=== PATIENT | female | born 1995 | race African-American/Black ===

== ENCOUNTER 2018-11-20 07:30 | Inpatient (IN) | payer MEDICAID, OTHER ==
[~2018-11-20] VITALS: Ht 172.7 cm; Wt 72.6 kg
[2018-11-20] VITALS (24 sets, daily range): BP systolic 119–171; BP diastolic 68–100
[2018-11-20 08:13] LABS: CHLORIDE 109 mEq/L (98-107)
[2018-11-20 08:16] LABS: ETHANOL BLOOD < 10 mg/dL
[2018-11-20 08:22] LABS: HCG SCREEN NEGATIVE
[2018-11-20 08:25] LABS: HEMATOCRIT. 44.4 % (36.0-48.0); HEMOGLOBIN. 14.6 g/dL (12.0-16.0); MEAN CORPUSCULAR HEMOGLOBIN 31.3 pg (28.0-32.0); MEAN CORPUSCULAR VOLUME 95.3 fL (81.0-99.0); MEAN PLATELET VOLUME 10.3 fl (7.4-10.4); PLATELET 214 x1000/uL (130-400); RED BLOOD CELL COUNT 4.66 mill/uL (4.2-5.4); RED CELL DISTRIBUTION WIDTH 13.1 % (11.6-14.6)
[2018-11-20 08:35] LABS: CLARITY URINE CLEAR (CLEAR); COLOR URINE YELLOW (YELLOW); KETONES URINE 1+ (NEGATIVE); LEUKOCYTE ESTERASE URINE NEGATIVE (NEGATIVE); NITRITE URINE NEGATIVE (NEGATIVE); OCCULT BLOOD URINE NEGATIVE (NEGATIVE); PH URINE 5.5 (4.5-8.0); PROTEIN URINE NEGATIVE (NEGATIVE); SPECIFIC GRAVITY URINE 1.022 (1.005-1.030)
[2018-11-20 08:50] LABS: *AMPHETAMINES SCREEN URINE NEGATIVE (NEGATIVE)
[2018-11-20 08:51] LABS: *BARBITURATES SCREEN URINE NEGATIVE (NEGATIVE); *BENZODIAZEPINES SCREEN URINE NEGATIVE (NEGATIVE); *COCAINE SCREEN URINE NEGATIVE (NEGATIVE); METHADONE URINE SCREEN NEGATIVE (NEGATIVE); OPIATES URINE SCREEN NEGATIVE (NEGATIVE)
[2018-11-20 08:52] LABS: CANNABINOID URINE SCREEN NEGATIVE (NEGATIVE); PHENCYCLIDINE URINE SCREEN NEGATIVE (NEGATIVE)
[2018-11-20 09:01] LABS: BG BASE EXCESS -7.2 mmol/L (-2.0-2.0); BG DEOXYHEMOGLOBIN 1.7 % (0.0-5.0); BG FRACTION INSPIRED OXYGEN 100; BG HCO3 ACT 18.8 mmol/L (22.0-26.0); BG METHEMOGLOBIN 0.2 % (0.0-1.5); BG OXYGEN SATURATION 98.3 % (92.0-98.5); BG OXYHEMOGLOBIN 98.1 % (94.0-97.0); BG PH 7.291 (7.350-7.450); BG PO2 133.2 mmHg (75.0-100.0); BG SAMPLE SITE LEFT RADIAL; BG VENT MODE MASK - NRB
[2018-11-20] MEDS ORDERED: SODIUM CHLORIDE 0.9% 1,000 ML IV ONE (09:09)
[2018-11-20 09:28] LABS: PLATELET ESTIMATE NORMAL
[2018-11-20] MEDS ORDERED: VANCOMYCIN 1 G PREMIX 200 ML IV ONE (09:45)
[2018-11-20] MEDS ORDERED: PIPERACILLIN/TAZ 3.375G PREMIX 50 ML IV ONE (09:45)
[2018-11-20] MEDS ORDERED: ETOMIDATE 2MG/ML 10ML VIAL IV ONE (10:50)
[2018-11-20] MEDS ORDERED: SUCCINYLCHOLINE CHLORIDE 200MG/10ML IV ONE (10:50)
[2018-11-20] MEDS ORDERED: PIPERACILLIN/TAZ 3.375G PREMIX 50 ML IV SCH (12:00)
[2018-11-20] MEDS ORDERED: IPRATROPIUM/ALBUTEROL 0.5-3(2.5)MG/3ML NEB HHN PRN (12:00)
[2018-11-20] MEDS ORDERED: CLONIDINE 0.1MG TABLET PO PRN (12:00)
[2018-11-20] MEDS ORDERED: VANCOMYCIN 1 G PREMIX 200 ML IV SCH (12:00)
[2018-11-20 13:11] LABS: BG BASE EXCESS -4.6 mmol/L (-2.0-2.0); BG CARBOXYHEMOGLOBIN 0.1 % (0.5-1.5); BG DEOXYHEMOGLOBIN 0.8 % (0.0-5.0); BG FRACTION INSPIRED OXYGEN 100; BG HCO3 ACT 21.9 mmol/L (22.0-26.0); BG METHEMOGLOBIN 0.4 % (0.0-1.5); BG OXYGEN SATURATION 99.2 % (92.0-98.5); BG OXYHEMOGLOBIN 98.7 % (94.0-97.0); BG PH 7.296 (7.350-7.450); BG SAMPLE SITE RIGHT RADIAL; BG TIDAL VOLUME(mL) 500 mL; BG TOTAL HEMOGLOBIN 13.8 g/dL (12.0-18.0); BG VENT MODE VENT - A/C; BG VENT RATE 18 set
[2018-11-20] MEDS ORDERED: HYDRALAZINE 20MG/ML VIAL IV PRN (13:45)
[2018-11-20] MEDS: PANTOPRAZOLE SODIUM 40 MG/VIAL IV SCH (13:59)
[2018-11-20] MEDS ORDERED: VANCOMYCIN 500 MG PREMIX 100 ML IV SCH (14:00)
[2018-11-20] MEDS: ENOXAPARIN 40MG/0.4ML SYR SUBCUT SCH (14:04)
[2018-11-20] MEDS: DEXT 5%/0.45% NACL 1000ML 1,000 ML IV SCH (15:20)
[2018-11-20 16:14] LABS: BG CARBOXYHEMOGLOBIN 0.4 % (0.5-1.5); BG DEOXYHEMOGLOBIN 1.1 % (0.0-5.0); BG FRACTION INSPIRED OXYGEN 70; BG HCO3 ACT 19.8 mmol/L (22.0-26.0); BG METHEMOGLOBIN 0.4 % (0.0-1.5); BG OXYGEN SATURATION 98.9 % (92.0-98.5); BG OXYHEMOGLOBIN 98.1 % (94.0-97.0); BG PCO2 32.6 mmHg (35.0-45.0); BG PH 7.402 (7.350-7.450); BG PO2 145.4 mmHg (75.0-100.0); BG SAMPLE SITE RIGHT RADIAL; BG TIDAL VOLUME(mL) 500 mL; BG TOTAL HEMOGLOBIN 13.3 g/dL (12.0-18.0); BG VENT MODE VENT - A/C; BG VENT RATE 18 set
[2018-11-20 16:57] LABS: INR 1.4; PROTHROMBIN TIME 13.9 sec (9.6-11.0)
[2018-11-20 17:07] LABS: CREATINE KINASE 970 IU/L (26-192); CREATINE KINASE MB FRACTION 5.7 ng/mL (0.5-3.6)
[2018-11-20 17:19] LABS: CHLORIDE 115 mEq/L (98-107)
[2018-11-20] MEDS: PIPERACILLIN/TAZOBACTAM 3.375 G in DEXT 5% WATER 100 ML IV SCH ×2 (17:44→21:48)
[2018-11-20] MEDS: INSULIN LISPRO 100 UNITS/ML SUBCUT SCH ×2 (18:00→23:49)
[2018-11-20] MEDS ORDERED: DEXTROSE 50% WATER 50ML SYRINGE IV PRN (18:00)
[2018-11-20] MEDS: BLOOD SUGAR DIAGNOSTIC STRIP TEST SCH ×2 (18:40→23:49)
[2018-11-20] MEDS: VANCOMYCIN 1250MG in DEXTROSE 5% WATER 250ML IV SCH (21:48)
[2018-11-20] MEDS ORDERED: METOPROLOL TARTRATE 50MG TABLET PO SCH (22:30)
[2018-11-20] MEDS: MORPHINE SULFATE 2 MG/ML CPJ (NOT FOR IM USE) IV PRN (22:33)
[2018-11-20] MEDS: ONDANSETRON HCL 4MG/2ML INJ IV PRN (22:34)
[2018-11-20 23:19] LABS: CREATINE KINASE MB FRACTION 5.1 ng/mL (0.5-3.6)
[2018-11-20 23:30] LABS: CREATINE KINASE 1035 IU/L (26-192)
[2018-11-21] VITALS (37 sets, daily range): BP systolic 135–178; BP diastolic 60–93
[2018-11-21] MEDS: DEXT 5%/0.45% NACL 1000ML 1,000 ML IV SCH ×2 (01:01→13:42)
[2018-11-21 03:15] LABS: HEMATOCRIT. 39.9 % (36.0-48.0); HEMOGLOBIN. 13.3 g/dL (12.0-16.0); MEAN CORPUSCULAR HEMOGLOBIN 31.6 pg (28.0-32.0); MEAN CORPUSCULAR VOLUME 94.7 fL (81.0-99.0); MEAN PLATELET VOLUME 9.9 fl (7.4-10.4); PLATELET 185 x1000/uL (130-400); RED BLOOD CELL COUNT 4.22 mill/uL (4.2-5.4); RED CELL DISTRIBUTION WIDTH 12.8 % (11.6-14.6)
[2018-11-21 03:26] LABS: CHLORIDE 110 mEq/L (98-107)
[2018-11-21 03:34] LABS: HDL CHOLESTEROL 51 mg/dL (40-59); LDL CHOLESTEROL 68 mg/dL (5-100)
[2018-11-21 03:35] LABS: T4 FREE 1.35 ng/dL (0.76-1.46)
[2018-11-21] MEDS: PIPERACILLIN/TAZOBACTAM 3.375 G in DEXT 5% WATER 100 ML IV SCH ×4 (04:06→21:31)
[2018-11-21] MEDS: MORPHINE SULFATE 2 MG/ML CPJ (NOT FOR IM USE) IV PRN ×3 (04:33→20:13)
[2018-11-21] MEDS: INSULIN LISPRO 100 UNITS/ML SUBCUT SCH ×4 (05:25→23:25)
[2018-11-21] MEDS: BLOOD SUGAR DIAGNOSTIC STRIP TEST SCH ×4 (05:25→23:25)
[2018-11-21] MEDS: VANCOMYCIN 1250MG in DEXTROSE 5% WATER 250ML IV SCH ×3 (05:25→21:32)
[2018-11-21 07:49] LABS: BG BASE EXCESS -1.9 mmol/L (-2.0-2.0); BG CARBOXYHEMOGLOBIN 0.3 % (0.5-1.5); BG DEOXYHEMOGLOBIN 0.7 % (0.0-5.0); BG FRACTION INSPIRED OXYGEN 60; BG HCO3 ACT 20.5 mmol/L (22.0-26.0); BG METHEMOGLOBIN 0.3 % (0.0-1.5); BG OXYGEN SATURATION 99.3 % (92.0-98.5); BG OXYHEMOGLOBIN 98.7 % (94.0-97.0); BG PCO2 28.6 mmHg (35.0-45.0); BG PH 7.474 (7.350-7.450); BG PO2 229.5 mmHg (75.0-100.0); BG SAMPLE SITE RIGHT RADIAL; BG TIDAL VOLUME(mL) 500 mL; BG TOTAL HEMOGLOBIN 12.7 g/dL (12.0-18.0); BG VENT MODE VENT - A/C; BG VENT RATE 20 set
[2018-11-21] MEDS: PANTOPRAZOLE SODIUM 40 MG/VIAL IV SCH (09:05)
[2018-11-21] MEDS: METOPROLOL TARTRATE 50MG TABLET PO SCH ×2 (09:05→21:02)
[2018-11-21 09:26] LABS: PLATELET ESTIMATE NORMAL
[2018-11-21] MEDS ORDERED: LORAZEPAM 2MG/ML CPJ IV SCH ×2 (10:15→11:15)
[2018-11-21 12:18] LABS: BG BASE EXCESS -0.6 mmol/L (-2.0-2.0); BG CARBOXYHEMOGLOBIN 0.3 % (0.5-1.5); BG DEOXYHEMOGLOBIN 1.1 % (0.0-5.0); BG FRACTION INSPIRED OXYGEN 40; BG HCO3 ACT 22.6 mmol/L (22.0-26.0); BG METHEMOGLOBIN 0.3 % (0.0-1.5); BG OXYGEN SATURATION 98.9 % (92.0-98.5); BG OXYHEMOGLOBIN 98.3 % (94.0-97.0); BG PCO2 32.7 mmHg (35.0-45.0); BG PH 7.458 (7.350-7.450); BG PO2 166.8 mmHg (75.0-100.0); BG SAMPLE SITE RIGHT RADIAL; BG TIDAL VOLUME(mL) 450 mL; BG TOTAL HEMOGLOBIN 12.2 g/dL (12.0-18.0); BG VENT MODE VENT - A/C; BG VENT RATE 18 set
[2018-11-21] MEDS: LACTULOSE 20G/30ML UDC PO SCH ×2 (13:27→21:31)
[2018-11-21] MEDS: ENOXAPARIN 40MG/0.4ML SYR SUBCUT SCH (13:27)
[2018-11-21] MEDS: IPRATROPIUM/ALBUTEROL 0.5-3(2.5)MG/3ML NEB HHN SCH ×2 (16:31→20:48)
[2018-11-21] MEDS: ACETAMINOPHEN 325MG TABLET PO PRN (17:26)
[2018-11-21] MEDS: ONDANSETRON HCL 4MG/2ML INJ IV PRN (20:12)
[2018-11-22] VITALS (58 sets, daily range): BP systolic 88–191; BP diastolic 43–96
[2018-11-22] MEDS: IPRATROPIUM/ALBUTEROL 0.5-3(2.5)MG/3ML NEB HHN SCH ×3 (01:43→20:39)
[2018-11-22] MEDS: DEXT 5%/0.45% NACL 1000ML 1,000 ML IV SCH ×3 (03:37→22:28)
[2018-11-22] MEDS: PIPERACILLIN/TAZOBACTAM 3.375 G in DEXT 5% WATER 100 ML IV SCH ×4 (03:49→21:28)
[2018-11-22] MEDS: MORPHINE SULFATE 2 MG/ML CPJ (NOT FOR IM USE) IV PRN ×4 (05:00→21:28)
[2018-11-22] MEDS: ONDANSETRON HCL 4MG/2ML INJ IV PRN ×2 (05:00→13:02)
[2018-11-22 05:42] LABS: BASOPHILS % 0.3 % (0.0-2.0); EOSINOPHILS % 1.3 % (0.0-5.0); HEMATOCRIT. 33.3 % (36.0-48.0); HEMOGLOBIN. 11.4 g/dL (12.0-16.0); LYMPHOCYTES % 11.5 % (20.0-50.0); MEAN CORPUSCULAR HEMOGLOBIN 32.1 pg (28.0-32.0); MEAN CORPUSCULAR VOLUME 93.9 fL (81.0-99.0); MEAN PLATELET VOLUME 9.7 fl (7.4-10.4); MONOCYTES % 3.2 % (2.0-8.0); NEUTROPHILS % 83.7 % (40.0-76.0); PLATELET 182 x1000/uL (130-400); RED BLOOD CELL COUNT 3.55 mill/uL (4.2-5.4)
[2018-11-22 05:44] LABS: CHLORIDE 109 mEq/L (98-107)
[2018-11-22 05:47] LABS: INR 1.2; PROTHROMBIN TIME 12.2 sec (9.6-11.0)
[2018-11-22] MEDS: VANCOMYCIN 1250MG in DEXTROSE 5% WATER 250ML IV SCH ×2 (05:49→14:38)
[2018-11-22] MEDS: BLOOD SUGAR DIAGNOSTIC STRIP TEST SCH ×4 (05:49→23:57)
[2018-11-22] MEDS: LACTULOSE 20G/30ML UDC PO SCH ×3 (05:49→21:28)
[2018-11-22] MEDS: INSULIN LISPRO 100 UNITS/ML SUBCUT SCH ×4 (05:49→23:57)
[2018-11-22] MEDS ORDERED: POTASSIUM CHLORIDE INJ 40 MEQ in DEXT 5% WATER 250 ML IV SCH (08:00)
[2018-11-22 08:39] LABS: BG BASE EXCESS -1.8 mmol/L (-2.0-2.0); BG CARBOXYHEMOGLOBIN 0.3 % (0.5-1.5); BG DEOXYHEMOGLOBIN 1.3 % (0.0-5.0); BG FRACTION INSPIRED OXYGEN 40; BG HCO3 ACT 21.6 mmol/L (22.0-26.0); BG METHEMOGLOBIN 0.9 % (0.0-1.5); BG OXYGEN SATURATION 98.7 % (92.0-98.5); BG OXYHEMOGLOBIN 97.5 % (94.0-97.0); BG PCO2 32.6 mmHg (35.0-45.0); BG PO2 172.6 mmHg (75.0-100.0); BG SAMPLE SITE RIGHT RADIAL; BG TIDAL VOLUME(mL) 450 mL; BG TOTAL HEMOGLOBIN 11.8 g/dL (12.0-18.0); BG VENT MODE VENT - A/C; BG VENT RATE 18 set
[2018-11-22] MEDS: PANTOPRAZOLE SODIUM 40 MG/VIAL IV SCH (10:00)
[2018-11-22] MEDS: METOPROLOL TARTRATE 50MG TABLET PO SCH ×2 (10:01→20:25)
[2018-11-22] MEDS: ENOXAPARIN 40MG/0.4ML SYR SUBCUT SCH (12:13)
[2018-11-22] MEDS ORDERED: POTASSIUM CHLORIDE INJ 40 MEQ in DEXT 5% WATER 250 ML IV NR (13:00)
[2018-11-22] MEDS ORDERED: KCL 20MEQ/100ML PREMIX 100 ML IV NR (13:00)
[2018-11-22] MEDS ORDERED: DILTIAZEM HCL 5MG/ML 5ML VIAL IV NR ×2 (13:30→16:18)
[2018-11-22] MEDS ORDERED: LORAZEPAM 2MG/ML CPJ IV NR (13:30)
[2018-11-22 16:28] LABS: BG BASE EXCESS -0.7 mmol/L (-2.0-2.0); BG CARBOXYHEMOGLOBIN 0.3 % (0.5-1.5); BG DEOXYHEMOGLOBIN 1.6 % (0.0-5.0); BG FRACTION INSPIRED OXYGEN 40; BG HCO3 ACT 23.8 mmol/L (22.0-26.0); BG METHEMOGLOBIN 0.2 % (0.0-1.5); BG OXYGEN SATURATION 98.4 % (92.0-98.5); BG OXYHEMOGLOBIN 97.9 % (94.0-97.0); BG PCO2 38.6 mmHg (35.0-45.0); BG PH 7.407 (7.350-7.450); BG PO2 124.9 mmHg (75.0-100.0); BG PRESSURE SUPPORT 5; BG SAMPLE SITE RIGHT RADIAL; BG VENT MODE VENT - CPAP
[2018-11-22] MEDS ORDERED: METOPROLOL TARTRATE 5MG/5ML VIAL IV NR (17:48)
[2018-11-22] MEDS ORDERED: LORAZEPAM 2MG/ML CPJ IV STA (18:22)
[2018-11-22] MEDS: DILTIAZEM HCL 125 MG in DEXT 5% WATER 100 ML IV PRN (19:35)
[2018-11-23] VITALS (94 sets, daily range): BP systolic 82–173; BP diastolic 47–126
[2018-11-23] MEDS: IPRATROPIUM/ALBUTEROL 0.5-3(2.5)MG/3ML NEB HHN SCH ×4 (01:21→22:14)
[2018-11-23] MEDS: MORPHINE SULFATE 2 MG/ML CPJ (NOT FOR IM USE) IV PRN ×2 (01:34→06:15)
[2018-11-23] MEDS: PIPERACILLIN/TAZOBACTAM 3.375 G in DEXT 5% WATER 100 ML IV SCH ×4 (03:29→21:08)
[2018-11-23 05:14] LABS: HEMATOCRIT 33.8 % (36.0-48.0); HEMOGLOBIN 11.6 g/dL (12.0-16.0); PLATELET 199 x1000/uL (130-400); RED BLOOD CELL COUNT 3.63 mill/uL (4.2-5.4)
[2018-11-23] MEDS: LACTULOSE 20G/30ML UDC PO SCH ×3 (05:15→21:08)
[2018-11-23] MEDS: BLOOD SUGAR DIAGNOSTIC STRIP TEST SCH ×3 (05:24→17:27)
[2018-11-23] MEDS: INSULIN LISPRO 100 UNITS/ML SUBCUT SCH ×3 (05:24→17:27)
[2018-11-23] MEDS ORDERED: POTASSIUM CHLORIDE 20MEQ TABLET SR PO NR (06:30)
[2018-11-23] MEDS: PANTOPRAZOLE SODIUM 40 MG/VIAL IV SCH (07:59)
[2018-11-23] MEDS: METOPROLOL TARTRATE 50MG TABLET PO SCH ×2 (08:00→21:09)
[2018-11-23] MEDS: DILTIAZEM HCL 125 MG in DEXT 5% WATER 100 ML IV PRN ×2 (08:00→20:56)
[2018-11-23 08:27] LABS: BG BASE EXCESS -2.2 mmol/L (-2.0-2.0); BG CARBOXYHEMOGLOBIN 0.3 % (0.5-1.5); BG FRACTION INSPIRED OXYGEN 40; BG HCO3 ACT 21.7 mmol/L (22.0-26.0); BG METHEMOGLOBIN 0.2 % (0.0-1.5); BG OXYHEMOGLOBIN 98.5 % (94.0-97.0); BG PCO2 34.3 mmHg (35.0-45.0); BG PH 7.419 (7.350-7.450); BG PRESSURE SUPPORT 5; BG SAMPLE SITE RIGHT RADIAL; BG TOTAL HEMOGLOBIN 11.2 g/dL (12.0-18.0); BG VENT MODE VENT - CPAP
[2018-11-23] MEDS ORDERED: RACEPINEPHRINE 2.25% 0.5ML NEB VIAL HHN PRN (08:45)
[2018-11-23] MEDS ORDERED: SODIUM CHLORIDE 0.9% 500 ML IV ONE (12:00)
[2018-11-23 13:05] LABS: BG CARBOXYHEMOGLOBIN 0.3 % (0.5-1.5); BG DEOXYHEMOGLOBIN 1.5 % (0.0-5.0); BG FRACTION INSPIRED OXYGEN 40; BG HCO3 ACT 22.4 mmol/L (22.0-26.0); BG METHEMOGLOBIN 0.5 % (0.0-1.5); BG OXYGEN SATURATION 98.5 % (92.0-98.5); BG OXYHEMOGLOBIN 97.7 % (94.0-97.0); BG PCO2 36.9 mmHg (35.0-45.0); BG PH 7.401 (7.350-7.450); BG PO2 132.8 mmHg (75.0-100.0); BG SAMPLE SITE RIGHT RADIAL; BG TOTAL HEMOGLOBIN 12.4 g/dL (12.0-18.0); BG VENT MODE MASK - AEROSOL
[2018-11-23] MEDS: ENOXAPARIN 40MG/0.4ML SYR SUBCUT SCH (14:03)
[2018-11-23] MEDS: DEXT 5%/0.45% NACL 1000ML 1,000 ML IV SCH (16:08)
[2018-11-23] MEDS: LORAZEPAM 2MG/ML CPJ IV PRN (16:28)
[2018-11-23 17:34] LABS: CLARITY URINE CLEAR (CLEAR); COLOR URINE YELLOW (YELLOW); KETONES URINE NEGATIVE (NEGATIVE); LEUKOCYTE ESTERASE URINE TRACE (NEGATIVE); NITRITE URINE NEGATIVE (NEGATIVE); OCCULT BLOOD URINE 3+ (NEGATIVE); PROTEIN URINE TRACE (NEGATIVE); SPECIFIC GRAVITY URINE 1.007 (1.005-1.030); UROBILINOGEN URINE 0.2 E.U./dL (0.2-1.0)
[2018-11-24] VITALS (65 sets, daily range): BP systolic 105–175; BP diastolic 49–110
[2018-11-24] MEDS: LORAZEPAM 2MG/ML CPJ IV PRN (00:33)
[2018-11-24] MEDS: DEXT 5%/0.45% NACL 1000ML 1,000 ML IV SCH (01:22)
[2018-11-24] MEDS: PIPERACILLIN/TAZOBACTAM 3.375 G in DEXT 5% WATER 100 ML IV SCH ×4 (03:04→21:59)
[2018-11-24] MEDS: MORPHINE SULFATE 2 MG/ML CPJ (NOT FOR IM USE) IV PRN (04:20)
[2018-11-24 05:22] LABS: BASOPHILS % 0.3 % (0.0-2.0); EOSINOPHILS % 1.1 % (0.0-5.0); HEMATOCRIT. 33.3 % (36.0-48.0); HEMOGLOBIN. 11.3 g/dL (12.0-16.0); LYMPHOCYTES % 11.9 % (20.0-50.0); MEAN CORPUSCULAR HEMOGLOBIN 31.7 pg (28.0-32.0); MEAN CORPUSCULAR VOLUME 93.6 fL (81.0-99.0); MEAN PLATELET VOLUME 9.8 fl (7.4-10.4); MONOCYTES % 10.6 % (2.0-8.0); NEUTROPHILS % 76.1 % (40.0-76.0); PLATELET 203 x1000/uL (130-400); RED BLOOD CELL COUNT 3.56 mill/uL (4.2-5.4); RED CELL DISTRIBUTION WIDTH 12.7 % (11.6-14.6)
[2018-11-24 05:32] LABS: PHOSPHORUS 2.5 mg/dL (2.5-4.9)
[2018-11-24] MEDS: INSULIN LISPRO 100 UNITS/ML SUBCUT SCH ×5 (06:00→23:48)
[2018-11-24] MEDS: BLOOD SUGAR DIAGNOSTIC STRIP TEST SCH ×5 (06:00→23:48)
[2018-11-24] MEDS ORDERED: HALOPERIDOL LACTATE 5MG/ML VIAL IM NR (06:16)
[2018-11-24] MEDS: LACTULOSE 20G/30ML UDC PO SCH (06:37)
[2018-11-24] MEDS: IPRATROPIUM/ALBUTEROL 0.5-3(2.5)MG/3ML NEB HHN SCH ×3 (08:25→20:15)
[2018-11-24 09:05] LABS: BG BASE EXCESS -0.8 mmol/L (-2.0-2.0); BG CARBOXYHEMOGLOBIN 0.3 % (0.5-1.5); BG DEOXYHEMOGLOBIN 4.9 % (0.0-5.0); BG FRACTION INSPIRED OXYGEN 21; BG HCO3 ACT 22.6 mmol/L (22.0-26.0); BG METHEMOGLOBIN 0.4 % (0.0-1.5); BG OXYGEN SATURATION 95.1 % (92.0-98.5); BG OXYHEMOGLOBIN 94.4 % (94.0-97.0); BG PCO2 33.1 mmHg (35.0-45.0); BG PH 7.453 (7.350-7.450); BG PO2 73.1 mmHg (75.0-100.0); BG SAMPLE SITE RIGHT RADIAL; BG TOTAL HEMOGLOBIN 10.7 g/dL (12.0-18.0); BG VENT MODE ROOM AIR
[2018-11-24] MEDS: METOPROLOL TARTRATE 50MG TABLET PO SCH ×2 (09:16→21:59)
[2018-11-24] MEDS ORDERED: POTASSIUM CHLORIDE 20MEQ TABLET SR PO NR (09:30)
[2018-11-24] MEDS: DEXT 5%/0.2% NACL 1,000 ML IV SCH ×3 (09:43→22:37)
[2018-11-24] MEDS ORDERED: POTASSIUM CHLORIDE 20MEQ/PACKET PO NR (10:00)
[2018-11-24] MEDS ORDERED: POTASSIUM CHLORIDE INJ 40 MEQ in DEXT 5% WATER 250 ML IV NR (11:00)
[2018-11-24] MEDS ORDERED: MAGNESIUM 4 G PREMIX 100 ML IV ONE (11:00)
[2018-11-24] MEDS: HALOPERIDOL LACTATE 5MG/ML VIAL IM PRN ×2 (14:06→22:08)
[2018-11-24] MEDS: ENOXAPARIN 40MG/0.4ML SYR SUBCUT SCH (14:08)
[2018-11-24] MEDS ORDERED: METOCLOPRAMIDE HCL 10MG/2ML VIAL IV SCH (15:00)
[2018-11-24] MEDS: ACETAMINOPHEN 325MG TABLET PO PRN (17:14)
[2018-11-24] MEDS: METOCLOPRAMIDE HCL 10MG/2ML VIAL IV SCH (17:45)
[2018-11-25] VITALS (31 sets, daily range): BP systolic 97–143; BP diastolic 65–96
[2018-11-25] MEDS: METOCLOPRAMIDE HCL 10MG/2ML VIAL IV SCH ×4 (00:01→23:29)
[2018-11-25] MEDS: DEXT 5%/0.2% NACL 1,000 ML IV SCH ×3 (00:54→16:58)
[2018-11-25] MEDS: IPRATROPIUM/ALBUTEROL 0.5-3(2.5)MG/3ML NEB HHN SCH ×4 (02:22→20:22)
[2018-11-25] MEDS: PIPERACILLIN/TAZOBACTAM 3.375 G in DEXT 5% WATER 100 ML IV SCH ×2 (03:53→08:48)
[2018-11-25 05:51] LABS: BASOPHILS % 0.4 % (0.0-2.0); EOSINOPHILS % 4.6 % (0.0-5.0); HEMATOCRIT. 29.5 % (36.0-48.0); HEMOGLOBIN. 10.1 g/dL (12.0-16.0); LYMPHOCYTES % 17.6 % (20.0-50.0); MEAN CORPUSCULAR HEMOGLOBIN 32.2 pg (28.0-32.0); MEAN CORPUSCULAR VOLUME 94.1 fL (81.0-99.0); MEAN PLATELET VOLUME 9.9 fl (7.4-10.4); MONOCYTES % 13.2 % (2.0-8.0); NEUTROPHILS % 64.2 % (40.0-76.0); PLATELET 195 x1000/uL (130-400); RED BLOOD CELL COUNT 3.14 mill/uL (4.2-5.4); RED CELL DISTRIBUTION WIDTH 12.7 % (11.6-14.6)
[2018-11-25] MEDS: INSULIN LISPRO 100 UNITS/ML SUBCUT SCH ×4 (06:00→23:32)
[2018-11-25 06:10] LABS: PHOSPHORUS 3.1 mg/dL (2.5-4.9)
[2018-11-25] MEDS: BLOOD SUGAR DIAGNOSTIC STRIP TEST SCH ×4 (06:17→23:32)
[2018-11-25] MEDS ORDERED: KCL 20MEQ/100ML PREMIX 100 ML IV ONE (06:45)
[2018-11-25] MEDS: HALOPERIDOL LACTATE 5MG/ML VIAL IM PRN ×2 (07:36→15:24)
[2018-11-25] MEDS: LACTULOSE 20G/30ML UDC PO SCH (08:11)
[2018-11-25] MEDS: METOPROLOL TARTRATE 50MG TABLET PO SCH ×2 (08:11→21:34)
[2018-11-25] MEDS ORDERED: KCL 20MEQ/100ML PREMIX 100 ML IV SCH (09:00)
[2018-11-25] MEDS ORDERED: VANCOMYCIN 1250MG in DEXTROSE 5% WATER 250ML IV SCH (12:00)
[2018-11-25] MEDS: ENOXAPARIN 40MG/0.4ML SYR SUBCUT SCH (12:15)
[2018-11-25] MEDS: PIPERACILLIN/TAZOBACTAM 2.25 G in DEXTROSE 5% WATER 50 ML IV SCH ×2 (15:11→21:34)
[2018-11-25] MEDS: PANTOPRAZOLE SODIUM 40 MG/VIAL IV SCH (17:12)
[2018-11-26] VITALS (24 sets, daily range): BP systolic 103–151; BP diastolic 54–98
[2018-11-26] MEDS: DEXT 5%/0.2% NACL 1,000 ML IV SCH ×4 (00:51→21:07)
[2018-11-26] MEDS: PIPERACILLIN/TAZOBACTAM 2.25 G in DEXTROSE 5% WATER 50 ML IV SCH ×4 (04:41→21:08)
[2018-11-26 05:34] LABS: BASOPHILS % 0.4 % (0.0-2.0); EOSINOPHILS % 6.9 % (0.0-5.0); HEMATOCRIT. 30.1 % (36.0-48.0); HEMOGLOBIN. 10.4 g/dL (12.0-16.0); LYMPHOCYTES % 17.4 % (20.0-50.0); MEAN CORPUSCULAR HEMOGLOBIN 32.2 pg (28.0-32.0); MEAN PLATELET VOLUME 9.6 fl (7.4-10.4); MONOCYTES % 14.4 % (2.0-8.0); NEUTROPHILS % 60.9 % (40.0-76.0); PLATELET 223 x1000/uL (130-400); RED BLOOD CELL COUNT 3.24 mill/uL (4.2-5.4); RED CELL DISTRIBUTION WIDTH 12.4 % (11.6-14.6)
[2018-11-26] MEDS: INSULIN LISPRO 100 UNITS/ML SUBCUT SCH ×3 (06:00→18:00)
[2018-11-26] MEDS: BLOOD SUGAR DIAGNOSTIC STRIP TEST SCH ×3 (06:09→18:06)
[2018-11-26] MEDS: METOCLOPRAMIDE HCL 10MG/2ML VIAL IV SCH ×4 (06:10→23:57)
[2018-11-26 06:15] LABS: CHLORIDE 108 mEq/L (98-107)
[2018-11-26 06:23] LABS: CREATINE KINASE 218 IU/L (26-192); PHOSPHORUS 3.6 mg/dL (2.5-4.9)
[2018-11-26] MEDS ORDERED: POTASSIUM CHLORIDE INJ 50 MEQ in DEXT 5% WATER 500 ML IV ONE (07:00)
[2018-11-26] MEDS: PANTOPRAZOLE SODIUM 40 MG/VIAL IV SCH ×2 (08:00→16:55)
[2018-11-26] MEDS: METOPROLOL TARTRATE 50MG TABLET PO SCH ×2 (08:00→21:08)
[2018-11-26] MEDS: LACTULOSE 20G/30ML UDC PO SCH (08:01)
[2018-11-26] MEDS: IPRATROPIUM/ALBUTEROL 0.5-3(2.5)MG/3ML NEB HHN SCH ×4 (09:34→20:01)
[2018-11-26] MEDS: ENOXAPARIN 40MG/0.4ML SYR SUBCUT SCH (12:21)
[2018-11-26] MEDS: ONDANSETRON HCL 4MG/2ML INJ IV PRN (18:14)
[2018-11-26] MEDS: LORAZEPAM 2MG/ML CPJ IV PRN (21:43)
[2018-11-26] MEDS ORDERED: POTASSIUM CHLORIDE INJ 40 MEQ in DEXT 5% WATER 250 ML IV NR (22:00)
[2018-11-27] VITALS (25 sets, daily range): BP systolic 118–163; BP diastolic 60–99
[2018-11-27] MEDS: IPRATROPIUM/ALBUTEROL 0.5-3(2.5)MG/3ML NEB HHN SCH ×4 (02:30→21:05)
[2018-11-27] MEDS: HALOPERIDOL LACTATE 5MG/ML VIAL IM PRN (02:41)
[2018-11-27] MEDS: PIPERACILLIN/TAZOBACTAM 2.25 G in DEXTROSE 5% WATER 50 ML IV SCH ×3 (03:17→15:01)
[2018-11-27] MEDS: DEXT 5%/0.2% NACL 1,000 ML IV SCH ×3 (04:47→18:23)
[2018-11-27 05:36] LABS: BASOPHILS % 0.7 % (0.0-2.0); EOSINOPHILS % 5.6 % (0.0-5.0); HEMATOCRIT. 31.4 % (36.0-48.0); HEMOGLOBIN. 10.7 g/dL (12.0-16.0); LYMPHOCYTES % 19.2 % (20.0-50.0); MEAN CORPUSCULAR HEMOGLOBIN 31.7 pg (28.0-32.0); MEAN CORPUSCULAR VOLUME 93.2 fL (81.0-99.0); MEAN PLATELET VOLUME 9.5 fl (7.4-10.4); MONOCYTES % 12.2 % (2.0-8.0); NEUTROPHILS % 62.3 % (40.0-76.0); PLATELET 267 x1000/uL (130-400); RED BLOOD CELL COUNT 3.37 mill/uL (4.2-5.4); RED CELL DISTRIBUTION WIDTH 12.5 % (11.6-14.6)
[2018-11-27 05:45] LABS: CHLORIDE 109 mEq/L (98-107)
[2018-11-27] MEDS: INSULIN LISPRO 100 UNITS/ML SUBCUT SCH ×5 (05:56→23:11)
[2018-11-27] MEDS: METOCLOPRAMIDE HCL 10MG/2ML VIAL IV SCH ×4 (05:56→23:11)
[2018-11-27] MEDS: BLOOD SUGAR DIAGNOSTIC STRIP TEST SCH ×5 (05:56→23:11)
[2018-11-27 06:02] LABS: PHOSPHORUS 3.7 mg/dL (2.5-4.9)
[2018-11-27 06:04] LABS: CREATINE KINASE 191 IU/L (26-192)
[2018-11-27] MEDS: PANTOPRAZOLE SODIUM 40 MG/VIAL IV SCH ×2 (08:00→16:13)
[2018-11-27] MEDS: LACTULOSE 20G/30ML UDC PO SCH (08:00)
[2018-11-27] MEDS: METOPROLOL TARTRATE 50MG TABLET PO SCH ×2 (08:00→21:41)
[2018-11-27] MEDS ORDERED: LACTULOSE 20G/30ML UDC PO PRN (10:15)
[2018-11-27] MEDS ORDERED: POTASSIUM CHLORIDE 20MEQ/PACKET PO SCH (11:15)
[2018-11-27] MEDS: ENOXAPARIN 40MG/0.4ML SYR SUBCUT SCH (12:09)
[2018-11-27] MEDS ORDERED: VANCOMYCIN 1250MG in DEXTROSE 5% WATER 250ML IV NR (16:00)
[2018-11-28] VITALS (20 sets, daily range): BP systolic 109–156; BP diastolic 39–102
[2018-11-28] MEDS: DEXT 5%/0.2% NACL 1,000 ML IV SCH ×4 (00:12→21:27)
[2018-11-28] MEDS: IPRATROPIUM/ALBUTEROL 0.5-3(2.5)MG/3ML NEB HHN SCH ×4 (02:45→20:55)
[2018-11-28] MEDS: METOCLOPRAMIDE HCL 10MG/2ML VIAL IV SCH (05:03)
[2018-11-28 05:32] LABS: BASOPHILS % 0.8 % (0.0-2.0); EOSINOPHILS % 4.2 % (0.0-5.0); HEMATOCRIT. 32.3 % (36.0-48.0); LYMPHOCYTES % 18.8 % (20.0-50.0); MEAN CORPUSCULAR HEMOGLOBIN 31.7 pg (28.0-32.0); MEAN CORPUSCULAR VOLUME 92.8 fL (81.0-99.0); MEAN PLATELET VOLUME 9.7 fl (7.4-10.4); NEUTROPHILS % 67.2 % (40.0-76.0); PLATELET 292 x1000/uL (130-400); RED BLOOD CELL COUNT 3.48 mill/uL (4.2-5.4); RED CELL DISTRIBUTION WIDTH 12.2 % (11.6-14.6)
[2018-11-28 05:40] LABS: PHOSPHORUS 3.9 mg/dL (2.5-4.9)
[2018-11-28] MEDS: INSULIN LISPRO 100 UNITS/ML SUBCUT SCH ×3 (06:00→17:53)
[2018-11-28] MEDS: BLOOD SUGAR DIAGNOSTIC STRIP TEST SCH ×3 (06:06→17:53)
[2018-11-28] MEDS: METOPROLOL TARTRATE 50MG TABLET PO SCH ×2 (09:07→21:27)
[2018-11-28] MEDS: PANTOPRAZOLE SODIUM 40 MG/VIAL IV SCH ×2 (09:07→17:27)
[2018-11-28] MEDS: ACETAMINOPHEN 325MG TABLET PO PRN (11:18)
[2018-11-28] MEDS: ENOXAPARIN 40MG/0.4ML SYR SUBCUT SCH (13:00)
[2018-11-29] VITALS (7 sets, daily range): BP systolic 105–117; BP diastolic 62–77
[2018-11-29] MEDS: IPRATROPIUM/ALBUTEROL 0.5-3(2.5)MG/3ML NEB HHN SCH ×4 (01:55→20:55)
[2018-11-29] MEDS: BLOOD SUGAR DIAGNOSTIC STRIP TEST SCH ×4 (05:37→17:08)
[2018-11-29] MEDS: DEXT 5%/0.2% NACL 1,000 ML IV SCH (05:39)
[2018-11-29] MEDS: INSULIN LISPRO 100 UNITS/ML SUBCUT SCH ×4 (05:50→17:07)
[2018-11-29] MEDS: ACETAMINOPHEN 325MG TABLET PO PRN ×2 (05:50)
[2018-11-29 08:22] LABS: BASOPHILS % 0.6 % (0.0-2.0); EOSINOPHILS % 2.7 % (0.0-5.0); HEMATOCRIT. 31.2 % (36.0-48.0); HEMOGLOBIN. 10.6 g/dL (12.0-16.0); LYMPHOCYTES % 16.1 % (20.0-50.0); MEAN CORPUSCULAR HEMOGLOBIN 31.6 pg (28.0-32.0); MEAN CORPUSCULAR VOLUME 93.1 fL (81.0-99.0); MEAN PLATELET VOLUME 9.8 fl (7.4-10.4); MONOCYTES % 8.7 % (2.0-8.0); NEUTROPHILS % 71.9 % (40.0-76.0); PLATELET 326 x1000/uL (130-400); RED BLOOD CELL COUNT 3.35 mill/uL (4.2-5.4)
[2018-11-29] MEDS: METOPROLOL TARTRATE 50MG TABLET PO SCH ×2 (09:00→20:35)
[2018-11-29] MEDS: PANTOPRAZOLE SODIUM 40 MG/VIAL IV SCH ×2 (09:27→17:00)
[2018-11-29 09:58] LABS: PHOSPHORUS 4.2 mg/dL (2.5-4.9)
[2018-11-29] MEDS ORDERED: POTASSIUM CHLORIDE 20MEQ TABLET SR PO NR (11:45)
[2018-11-29] MEDS: ENOXAPARIN 40MG/0.4ML SYR SUBCUT SCH (13:09)
== END 2018-11-29 22:42 | DRG 720 ==
LOC: ER 07:30 → EDBEDREQTM 10:28 → EDBEDREQ 10:28 → CVICU 10:42 → EDBEDREQSVC 10:44 → EDBEDREQTM 10:44 → EDBEDREQ 10:44 → ENRESERV 10:50 → CVICU 11-28 03:40 → 6WST 11-28 19:46
PROVIDERS: ADMIT Internal Medicine; ATTEND Internal Medicine
PROC: 5A1945Z Respiratory Ventilation, 24-96 Consecutive Hours (ICD-10-PCS; principal; 2018-11-20)
PROC: 0BH17EZ Insertion of Endotracheal Airway into Trachea, Via Natural or Artificial Opening (ICD-10-PCS; 2018-11-20)
PROC: 4A00X4Z Measurement of Central Nervous Electrical Activity, External Approach (ICD-10-PCS; 2018-11-21)
DX: A41.9 Sepsis, unspecified organism (principal); J96.00 Acute respiratory failure, unspecified whether with hypoxia or hypercapnia; J69.0 Pneumonitis due to inhalation of food and vomit; G92 Toxic encephalopathy; E72.20 Disorder of urea cycle metabolism, unspecified; E44.0 Moderate protein-calorie malnutrition; E87.2 Acidosis; N17.9 Acute kidney failure, unspecified; T42.8X2A Poisoning by antiparkinsonism drugs and other central muscle-tone depressants, intentional self-harm, initial encounter; D68.9 Coagulation defect, unspecified; F22 Delusional disorders; R73.9 Hyperglycemia, unspecified; M62.82 Rhabdomyolysis; E87.6 Hypokalemia; E87.0 Hyperosmolality and hypernatremia; F32.9 Major depressive disorder, single episode, unspecified; I10 Essential (primary) hypertension; K56.7 Ileus, unspecified; K29.70 Gastritis, unspecified, without bleeding; Z78.1 Physical restraint status; Z82.49 Family history of ischemic heart disease and other diseases of the circulatory system; Z91.5 Personal history of self-harm; Y92.89 Other specified places as the place of occurrence of the external cause; E83.42 Hypomagnesemia
CPT/HCPCS: 31500; 36415; 36600; 71045; 74018; 76770; 80048; 80061; 80076; 80202; 80305; 80307; 80320; 80329; 81003; 82140; 82375; 82550; 82553; 82805; 82962; 83036; 83605; 83735; 84100; 84132; 84439; 84443; 84484; 84703; 85027; 87070; 93005; 93306; 94002; 94003; 94640; 99291; C9113; J0330; J0360; J1630; J1650; J2060; J2270; J2405; J2543; J2765; J3370; J3475; J3480; J3490; J7030; J7040; J7060; J7070; J7620; G0480